=== PATIENT | female | born 1980 | race African-American/Black ===

== ENCOUNTER 2017-05-31 13:18 | Emergency (ER) | payer MEDICAID ==
[~2017-05-31] VITALS: Ht 175.3 cm; Wt 83.5 kg
[~2017-05-31 13:18] MED LIST: CEPH500C; albuterol inhaler
[2017-05-31 13:24] VITALS: BP 107/63
== END 2017-05-31 14:14 | disposition home or self-care (01) ==
LOC: ER 13:18
DX: K04.7 Periapical abscess without sinus (principal); J45.909 Unspecified asthma, uncomplicated; F17.210 Nicotine dependence, cigarettes, uncomplicated; Z79.899 Other long term (current) drug therapy

== ENCOUNTER 2021-04-17 19:28 | Inpatient (IN) | payer MEDICAID ==
[~2021-04-17] VITALS: Ht 175.3 cm; Wt 93.0 kg
[2021-04-17] MEDS: MAGNESIUM SULFATE 1GM/100ML 100 ML IV SCH ×2 (00:20→23:00)
[2021-04-17] MEDS ORDERED: ALBUTEROL SULF 2.5 MG/0.5ML(0.5%) NEB SOLN NEB ONE (19:45)
[2021-04-17] MEDS ORDERED: IPRATROPIUM BROM 0.5 MG/2.5ML INH SOL NEB ONE (19:45)
[2021-04-18] MEDS ORDERED: MAGNESIUM SULFATE 1GM/100ML 100 ML IV ONE (00:21)
[2021-04-18] MEDS ORDERED: IPRATROPIUM BROM 0.5 MG/2.5ML INH SOL NEB ONE (02:15)
[2021-04-18] MEDS ORDERED: ALBUTEROL SULF 2.5 MG/0.5ML(0.5%) NEB SOLN NEB ONE (02:15)
[2021-04-18] MEDS ORDERED: MORPHINE SULFATE INJECTION 2 MG/ML SYRG IV PRN (04:30)
[2021-04-18] MEDS ORDERED: ONDANSETRON HCL 4 MG/2 ML VIAL IV PRN (04:30)
[2021-04-18] MEDS ORDERED: NITROGLYCERIN 0.4 MG SL TAB SL PRN (04:30)
[2021-04-18] MEDS ORDERED: IPRATROPIUM BROM 0.5 MG/2.5ML INH SOL ONE (05:39)
[2021-04-18] MEDS ORDERED: ALBUTEROL SULF 2.5 MG/0.5ML(0.5%) NEB SOLN ONE (05:39)
[2021-04-18] MEDS ORDERED: methylPREDNISolone SOD SUCC 125 MG/2 ML VL ONE (05:40)
[2021-04-18] MEDS: methylPREDNISolone SOD SUCC 125 MG/2 ML VL IV SCH ×2 (05:43→12:49)
[2021-04-18] MEDS: IPRATROPIUM BROM 0.5 MG/2.5ML INH SOL NEB SCH ×5 (05:43→22:58)
[2021-04-18] MEDS: ALBUTEROL SULF 2.5 MG/0.5ML(0.5%) NEB SOLN NEB SCH ×5 (05:43→22:57)
[2021-04-18 08:05] LABS: Basophils # (auto) 0 10 ^3/uL (0-0.2); Basophils % (auto) 0.1 % (0.0-2.0); Eosinophils # (auto) 0 10 ^3/uL (0-0.8); Eosinophils % (auto) 0.2 % (0.0-7.0); Hemoglobin 12.5 g/dL (12.2-16.2); White Blood Cell 10.8 10^3/uL (4.4-10.8)
[2021-04-18 08:06] LABS: Hematocrit 38.1 % (36.0-46.0); Lymphocytes # (auto) 1.4 10 ^3/uL (0.4-5.4); Lymphocytes % (auto) 12.9 % (10.0-50.0); Mean Corpuscular Hemoglobin 26.5 pg (28.0-32.0); Mean Corpuscular Hgb Conc. 32.9 g/dL (32.0-36.0); Mean Corpuscular Volume 80.5 fL (80.0-100.0); Monocytes # (auto) 0.4 10 ^3/uL (0-1.3); Monocytes % (auto) 3.3 % (0.0-12.0); Neutrophils % (auto) 83.5 % (37.0-80.0); Nucleated Red Blood Cells % 0.1 %; Red Blood Cells 4.73 10^6/uL (4.0-5.20); Red Cell Distribution Width 14.5 % (11.8-14.3)
[2021-04-18] MEDS ORDERED: ACETAMINOPHEN 325 MG TAB PO ONE (08:21)
[2021-04-18] MEDS: ACETAMINOPHEN 325 MG TAB PO PRN ×2 (08:30→18:16)
[2021-04-18 09:00] VITALS: BP 110/68
[2021-04-18] MEDS ORDERED: ALBU108A5 IN (11:46)
[2021-04-18 13:00] VITALS: BP 112/61
[2021-04-18 13:05] LABS: Potassium 3.4 mmol/L (3.5-5.1)
[2021-04-18 13:26] LABS: BUN/Creatinine Ratio 11.8; Calcium 8.7 mg/dL (8.5-10.1)
[2021-04-18] MEDS ORDERED: POTASSIUM CHL 20 Meq TABLET PO ONE (14:45)
[2021-04-18] MEDS: levoFLOXacin 500 MG TAB PO SCH (15:51)
[2021-04-18 16:44] VITALS: BP 106/58
[2021-04-18] MEDS ORDERED: IOHEXOL 350 MG/ML 100ML IJ ONE (18:33)
[2021-04-18] MEDS: methylPREDNISolone SOD SUCC 40 MG/ML VL IV SCH (21:33)
[2021-04-18 22:00] VITALS: BP 128/68
[2021-04-19 05:00] VITALS: BP 123/72
[2021-04-19] MEDS: ALBUTEROL SULF 2.5 MG/0.5ML(0.5%) NEB SOLN NEB SCH ×3 (06:00→20:18)
[2021-04-19] MEDS: IPRATROPIUM BROM 0.5 MG/2.5ML INH SOL NEB SCH ×3 (06:00→20:18)
[2021-04-19] MEDS: methylPREDNISolone SOD SUCC 40 MG/ML VL IV SCH ×3 (06:01→22:21)
[2021-04-19 07:09] LABS: BUN/Creatinine Ratio 17.1; Calcium 8.8 mg/dL (8.5-10.1); Potassium 4.3 mmol/L (3.5-5.1)
[2021-04-19 07:10] LABS: Basophils # (auto) 0 10 ^3/uL (0-0.2); Basophils % (auto) 0.2 % (0.0-2.0); Eosinophils # (auto) 0 10 ^3/uL (0-0.8); Hematocrit 36.8 % (36.0-46.0); Hemoglobin 12.3 g/dL (12.2-16.2); Lymphocytes # (auto) 1.7 10 ^3/uL (0.4-5.4); Lymphocytes % (auto) 14.1 % (10.0-50.0); Mean Corpuscular Hemoglobin 26.9 pg (28.0-32.0); Mean Corpuscular Hgb Conc. 33.4 g/dL (32.0-36.0); Mean Corpuscular Volume 80.7 fL (80.0-100.0); Monocytes # (auto) 0.5 10 ^3/uL (0-1.3); Monocytes % (auto) 4.2 % (0.0-12.0); Neutrophils # (auto) 9.8 10 ^3/uL (1.6-8.6); Neutrophils % (auto) 81.5 % (37.0-80.0); Red Blood Cells 4.56 10^6/uL (4.0-5.20); Red Cell Distribution Width 14.1 % (11.8-14.3)
[2021-04-19] MEDS: levoFLOXacin 500 MG TAB PO SCH (08:33)
[2021-04-19 09:00] VITALS: BP 109/62
[2021-04-19 13:00] VITALS: BP 96/54
[2021-04-19 16:46] VITALS: BP 133/78
[2021-04-19] MEDS: ACETAMINOPHEN 325 MG TAB PO PRN (18:40)
[2021-04-19 20:00] VITALS: BP 106/55
[2021-04-20] MEDS: ALBUTEROL SULF 2.5 MG/0.5ML(0.5%) NEB SOLN NEB SCH ×4 (00:45→19:39)
[2021-04-20] MEDS: IPRATROPIUM BROM 0.5 MG/2.5ML INH SOL NEB SCH ×4 (00:45→19:39)
[2021-04-20 04:00] VITALS: BP 113/67
[2021-04-20] MEDS: methylPREDNISolone SOD SUCC 40 MG/ML VL IV SCH ×2 (05:32→13:20)
[2021-04-20 06:26] LABS: Basophils # (auto) 0 10 ^3/uL (0-0.2); Basophils % (auto) 0.1 % (0.0-2.0); Eosinophils # (auto) 0 10 ^3/uL (0-0.8); Hemoglobin 12.8 g/dL (12.2-16.2); Lymphocytes # (auto) 1.1 10 ^3/uL (0.4-5.4); Lymphocytes % (auto) 12.1 % (10.0-50.0); Mean Corpuscular Hemoglobin 26.5 pg (28.0-32.0); Mean Corpuscular Hgb Conc. 32.7 g/dL (32.0-36.0); Mean Corpuscular Volume 80.9 fL (80.0-100.0); Monocytes # (auto) 0.4 10 ^3/uL (0-1.3); Monocytes % (auto) 4.2 % (0.0-12.0); Neutrophils # (auto) 7.9 10 ^3/uL (1.6-8.6); Neutrophils % (auto) 83.6 % (37.0-80.0); Nucleated Red Blood Cells % 0.2 %; Red Blood Cells 4.82 10^6/uL (4.0-5.20); Red Cell Distribution Width 14.4 % (11.8-14.3); White Blood Cell 9.5 10^3/uL (4.4-10.8)
[2021-04-20 06:29] LABS: Calcium 8.8 mg/dL (8.5-10.1); Potassium 4.3 mmol/L (3.5-5.1)
[2021-04-20 06:32] LABS: BUN/Creatinine Ratio 22.1
[2021-04-20 09:00] VITALS: BP 118/72
[2021-04-20] MEDS: levoFLOXacin 500 MG TAB PO SCH (09:44)
[2021-04-20 13:00] VITALS: BP 113/72
[2021-04-20] MEDS ORDERED: ALBU108A5 IN (16:28)
[2021-04-20] MEDS ORDERED: PRED20TA2 PO (16:28)
[2021-04-20] MEDS ORDERED: LEVO-28 PO (16:28)
[2021-04-20 17:00] VITALS: BP 104/69
[2021-04-20 18:29] VITALS: BP 103/63
== END 2021-04-20 19:30 | disposition home or self-care (01) | DRG 133 ==
LOC: ER 19:34 → TELE 04-18 04:19 → TELE-EAST 04-18 09:28
PROVIDERS: ADMIT Hospitalist; ATTEND Hospitalist
DX: J96.01 Acute respiratory failure with hypoxia (principal); J45.902 Unspecified asthma with status asthmaticus; E11.9 Type 2 diabetes mellitus without complications; D72.829 Elevated white blood cell count, unspecified; E66.9 Obesity, unspecified; E87.6 Hypokalemia; F17.210 Nicotine dependence, cigarettes, uncomplicated; F12.90 Cannabis use, unspecified, uncomplicated; Z20.822 Contact with and (suspected) exposure to COVID-19; Z68.30 Body mass index [BMI] 30.0-30.9, adult; Z80.1 Family history of malignant neoplasm of trachea, bronchus and lung; Z82.49 Family history of ischemic heart disease and other diseases of the circulatory system; Z82.61 Family history of arthritis; Z83.3 Family history of diabetes mellitus; Z88.5 Allergy status to narcotic agent
CPT/HCPCS: 36415; 71046; 71275; 80048; 81025; 85025; 85379; 87426; 87804; 93970; 94640; 94644; 94645; 96365; 96374; 96375; G0378

== ENCOUNTER 2023-11-13 10:41 | Emergency (ER) | payer MEDICAID ==
[~2023-11-13] VITALS: Ht 175.3 cm; Wt 90.9 kg
[~2023-11-13 10:41] MED LIST changes: +ALBU108A5 IN; -CEPH500C; +LEVO500T91 PO; +PRED20TA2 PO; -albuterol inhaler
[2023-11-13 12:28] VITALS: BP 109/66; PULSE 82; RESP 18; TEMP 97.6; O2SAT 95
[2023-11-13] MEDS: ONDANSETRON ODT 4 MG TAB PO ONE (12:45)
[2023-11-13] MEDS ORDERED: ZOFR4T PO (13:18)
== END 2023-11-13 13:32 | disposition home or self-care (01) ==
LOC: ER 10:41
DX: R11.2 Nausea with vomiting, unspecified (principal); R19.7 Diarrhea, unspecified; J45.909 Unspecified asthma, uncomplicated; F17.210 Nicotine dependence, cigarettes, uncomplicated; Z88.8 Allergy status to other drugs, medicaments and biological substances; Z79.899 Other long term (current) drug therapy
CPT/HCPCS: 99283; Q0162